=== PATIENT | male | born 1940 | race African-American/Black ===

== ENCOUNTER 2020-02-28 06:15 | Day surgery (SDC) | payer OTHER ==
[~2020-02-28] VITALS: Ht 170.2 cm; Wt 98.9 kg
[~2020-02-28 06:15] MED LIST: ACTOS 30 MG TAB30 MG PO; BENAZEPRIL HCL20 MG PO; CHILDREN'S ASPI81 M1 PO; GLIMEPIRIDE4 MG PO; NEURONTIN100 MG PO; NORVASC10 MG PO; OXYBUTYNIN CHLO15 MG PO; PROAIR HFA8.5 GM INH; SIMVASTATIN40 MG PO; XYZAL5 MG PO
[2020-02-28 07:19] VITALS: BP 145/63
--- NOTE | 2020-03-03 06:14 | O ---
[address] [place] [address] OPERATIVE REPORT Name: TERESA CASAS Room #: DEP [facility]#: [id number] Admission: 02/28/20 Attend Phys: Froilan Chinchilla MD Discharge: 02/28/20 Date of : 44 Report #: [id number] THIS REPORT FOR: cc: Danielle Santiago MD,Danielle Chinchilla,Froilan Nation MD ~ CC: Naga Chinchilla DATE OF SERVICE: 02/28/2020 PREOPERATIVE DIAGNOSIS: Left orbital mass. POSTOPERATIVE DIAGNOSIS: Left orbital mass. PROCEDURE: Left transconjunctival orbitotomy. SURGEON: Froilan Chinchilla MD. BARREL BRANDER: None. ANESTHESIA: General. COMPLICATIONS: None. INDICATIONS FOR SURGERY: This pleasant 79-year-old gentleman has a mass in his left superotemporal orbit inducing mechanical ectropion with chronic irritation and discharge from that eye. 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 He presents today for a right transconjunctival orbitotomy. Informed consent was obtained to include but not limited to the potential risk for loss of vision, bleeding, infection, failure to improve the problem, and the potential need for further surgery or treatment. DESCRIPTION OF PROCEDURE: The patient was taken to the operating room where general anesthesia was administered. The left orbit was then anesthetized transconjunctivally with Xylocaine with epinephrine mixed with Marcaine and Wydase. An additional aliquot of anesthetic was then administered over the left lateral canthus to achieve a 7th nerve block. The patient was subsequently prepped and draped in the usual sterile fashion. The left upper lid was then distracted superiorly allowing access to the superior temporal conjunctivae. A radial incision was then made through conjunctiva allowing Tenon to be grasped. Tenon's capsule was then elevated and an incision made through the capsule. The mass could be grasped through that buttonhole incision. The dissection was then [address] [address] OPERATIVE REPORT Name: CASASTERESA Room #: DEP [facility]..#: [id number] Admission: 02/28/20 Attend Phys: Froilan Chinchilla MD Discharge: 02/28/20 Date of : 44 Report #: [id number] carried down on to the episclera the lesion from the underlying globe, the inferiorly based lateral rectus muscle, the superiorly based superior rectus muscle, and the overlying lacrimal gland. The dissection was carried down past the equator. The lesion was then grasped at its base and clamped with a hemostat. A high-temp cautery was then used to amputate the lesion anterior to the equator. The stump was grabbed as the hemostat was released to ensure that good hemostasis was obtained. Minimal bleeding ensued, which was controlled with monopolar cautery. The wound was then closed with 6-0 plain gut sutures with buried knots. The wound was then cleaned and dressed with erythromycin ophthalmic ointment and the patient subsequently transported to the recovery area having tolerated the procedure well with no anesthetic or operative complications being noted. <ELECTRONICALLY SIGNED> By: Froilan Chinchilla MD 03/03/20 0614 Froilan Chinchilla MD /nt
--- NOTE | 2020-03-04 17:06 | PATH ---
[facility] [address] [place] [address] PATHOLOGY RPT PROCEDURE Name: TERESA CASAS Sara Room #: DEP [facility] M.R.#: [id number] Admission: 02/28/20 Date of : 42 Discharge: 02/28/20 Report #: [id number] Path Case #: [id number] [facility] Accession Number: [id number] . 01 Material submitted: . eye - LEFT EYE DERMAL LIPOMA. Modifiers: left . 01 Clinical history: . Benign neoplasm of orbit . 02 Diagnosis: Mature adipose tissue, left eye dermal lipoma, excision: - Compatible with a lipoma showing reactive changes. . (IUV:mml; 03/04/2020) [facility] 03/04/2020 1635 Local . 02 Comment: Examination shows a few reactive nuclei and mild hyperchromasia. Therefore a properly-controlled *MDM2 immunohistochemical stain is performed on block A1 and is shows no nuclear reactivity present supporting the diagnosis rendered. . (IUV:mml; 03/04/2020) . . Professional services performed by [facility] at [facility], [address] [place] [address] , [place] [address]. *Technical services performed by [facility], [address] [place] [address], [address], [place] [address]. . 02 Electronically signed: . Callie Hill MD, Pathologist NPI- [id number] . 01 Gross description: . The specimen is received in formalin, labeled "Teresa Casas, left eye dermal lipoma" and consists of a segment of yellow orange lobulated tissue measuring 1.4 x 1.0 x 0.5 cm. Sectioning reveals homogeneous yellow cut surfaces and the specimen is entirely submitted in A1. (SDY; 02/28/2020) SYU/SYU 03/04/2020 1351 Local . 02 Pathologist provided ICD-10: D17.79 . 02 CPT . 795241, [id number] [facility] [address] [place] [address] PATHOLOGY RPT PROCEDURE Name: TERESA CASAS Sara Room #: [facility] M.R.#: [id number] Admission: 02/28/20 Date of : 44 Discharge: 02/28/20 Report #: [id number] Path Case #: [id number] Specimen Comment: A courtesy copy of this report has been sent to [phone] Specimen Comment: [phone], Specimen Comment: Report sent to ,DR SINGH / DR LIVE Performed at: [address], [place], [place] [id number] MD William Williamson MD Phone: [phone] Performed at: [address] [id number] MD Callie Hill MD Phone: [phone]
== END 2020-02-28 08:55 | disposition home or self-care (01) ==
LOC: TBA 06:15 → OR 06:15 → TBA 06:25 → OR 08:55
PROVIDERS: ATTEND Ophthalmology
DX: D17.0 Benign lipomatous neoplasm of skin and subcutaneous tissue of head, face and neck (principal); H05.89 Other disorders of orbit; E11.9 Type 2 diabetes mellitus without complications; G47.30 Sleep apnea, unspecified; Z11.59 Encounter for screening for other viral diseases; Z98.890 Other specified postprocedural states; Z79.899 Other long term (current) drug therapy; Z87.891 Personal history of nicotine dependence
CPT/HCPCS: 50010; 50101; 50386; 50398; 51636; 62110; 62900; 70005

== ENCOUNTER 2021-08-15 20:22 | Inpatient (IN) | payer OTHER ==
[~2021-08-15 20:22] MED LIST changes: -COZAAR 50 MG TA50 M1 PO; -LEXAPRO 10 MG T10 M1 PO; -PEPCID20 MG PO; -TRAZODONE HCL50 MG PO
[2021-08-16 05:25] VITALS: BP 145/81
--- NOTE | 2021-08-16 06:57 | NUR ---
08-16-21 RECEIVED REPORT FROM ED RN NA. PT ARRIVED 0525 AAOX4, VS B/P 145/81, P 80, R 18, T 96.6, 02 SAT 100% RA RR EVEN AND NONLABORED, LUNGS CLEAR, HT RR, ABD SOFT/ACTIVE/NONETENDER. PT DENIES SI/HI AND PAIN. PT CALM AND COOPERATIVE. PT HX HTN, DMII. PT REPORTS THAT HE HAS ALSO HAD THE BOOSTER FOR COVID. HCP Anthony MCDANIEL NP CONTACTED. HCP Kerri BURNS MD CONTACTED AND ORDERS RECEIVED. PT REQUESTED WE CONTACT HIS , MESSAGE LEFT FOR WEI THIS AM.
[2021-08-16 08:24] VITALS: BP 130/64
[2021-08-16 09:36] VITALS: BP 130/64
--- NOTE | 2021-08-16 10:15 | NUR ---
RESUMMED CARE FROM OVERNIGHT SHIFT THIS AM, PATIENT ALERT ORIENTED TIMES 4. PATIENT DENIES SI/HI/AH/VH AT PRESENT; PATIENT STATES HE WOULD NEVER KILL HIMSELF AND LEAVE HUS FAMILY. PATIENT STATES THE STRESS FROM COVID HAD HIM THINKING CRAZY. PATIENT DENIES DEPRESS OR ANXIETY AT PRESENT; PATIENTS ABDOMEN SOFT BOWEL SOUNDS PRESENT. PATIENTS LUNGS CLEAR PATIENT CALM COOPERATIVE PARTICIPATED IN GROUPS. WILL CONTINUE TO MONITOR PATIENT FOR SAFETY AND BEHAVIORS.
--- NOTE | 2021-08-16 12:23 | NUR ---
Phone call to patient's daughter, Mk ([phone]). Mk is interested in becoming DPOA for her father. She stated the patient was diagnosed with having early signs of dementia while at [facility]. They are currently waiting lab results to determine if the patient has a UTI and prostate cancer. Mk states the patient is . The 's phone number is [phone]. Mk expressed that her mother would like for Mk to be the DPOA as with everything going on, it is too overwhelming for her mother. The provided Mk with her email address. Mk states she will email the DPOA paperwork to the .
[2021-08-16 14:14] LABS: CHOLESTEROL 143 mg/dL (<200); HDL CHOLESTEROL 44 mg/dL (>40); LDL CHOLESTEROL 69 mg/dL (<100); TC:HDL 3.3 Ratio (Not establshd); TRIGLYCERIDE 154 mg/dL (<150); VLDL 31 mg/dL (<40)
[2021-08-16 19:08] VITALS: BP 138/76
[2021-08-16 23:06] LABS: GLYCOHEMOGLOBIN (HGB A1C) 8.1 % (4.8-5.6)
--- NOTE | 2021-08-17 02:59 | NUR ---
08-16-21 CARE TRANSFERRED 1899. LATER PT AAOX4, VSS, RR EVEN AND NONLABORED ON RA, LUNGS CLEAR, HT RR, ABD SOFT/ACTIVE. PT DENIES SI/HI AND PAIN. PT CALM AND COOPERATIVE THROUGHOUT NURSING ASSESSMENT. DURING MEDICATION ADMIN PT REPORTED FEELING DEPRESSED THROUGH THE LAST YEAR DEALING WITH COVID19. PT WILLING TO TRY THE MEDICATION AND HOPE IT WORKS. PT DENIES NEEDING ANY FURTHER ASSISTANCE. PT WILL CONTINUE TO BE MONITOR PER [facility].
[2021-08-17 09:00] VITALS: BP 155/69
[2021-08-17 09:05] VITALS: BP 155/69
[2021-08-17 09:09] VITALS: BP 130/83
[2021-08-17 09:12] VITALS: BP 155/69
--- NOTE | 2021-08-17 11:00 | NUR ---
Nutrition: pt admitted with [facility] unit with SI, depression. Hx NIDDM. On oral med. A1C 8.5, BG 140. Pt voices UBW of 215#. Has had 10# weight loss from usual, intentionally. Tries to walk after meals and watches what he eats at home. On 1 oral med for DM. Continue regular diet as long as accuchecks are controlled. Consider low nutrition risk.
--- NOTE | 2021-08-17 14:11 | NUR ---
Phone call to patient's daughter, Adriana. Adriana provided the correct phone number for her mother, Glendy ([phone]). Adriana continues to be interested in being the DPOA for the patient. The has discussed this with the patient and the patient is in support of this occurring. Phone call to the patient's , Glendy - Voice message
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
--- NOTE | 2021-08-17 16:27 | NUR ---
Assumed pt care this am from overnight shift. Client presented pleasant and calm during assessment and was oriented 4x. Client denied depression and anxiety at this time. Client also denied any hallucinations. Client denied any suicidal and homicidal thoughts as well. Client lung sounds clear. Bowel sounds present. Last reported bm 08/15/21. During assessment, client presented concerns about his medication and medication regime. Concerns passed along to hospitalist, and discussed with MELINDA Adhikari during this shift. Medication changes made by hospitalist to align with client's current home regime and hospitalist request. Client has been informed. No further concerns at this time.
[2021-08-17 19:38] VITALS: BP 134/66
[2021-08-17 20:30] VITALS: BP 134/66
--- NOTE | 2021-08-18 01:01 | NUR ---
PATIENT WAS IN BED IN HIS ROOM THIS EVENING WHEN I ASSUMED CARE OF PATIENT AT 1900. ENCOURAGED PATIENT TO COME OUT AND WATCH WiTricity BASKETBALL WITH ANOTHER PATIENT THAT HE LIKES TO SPEND TIME WITH. HE WAS ANXIOUS AND DID NOT WANT TO COME OUT IF ALOT OF PEOPLE WERE OUT THERE. HE DID WANT A SNACK, HOWEVER, AND I EXPLAINED THAT HE HAS TO EAT HIS SNACKS IN THE DINING ROOM. HE CAME OUT AND WATCHED THE GAME FOR AWHILE BEFORE GOING TO HIS ROOM TO SLEEP. HE DID REQUEST HIS TRAZADONE PRN AT BEDTIME. HE HAS BEEN PLEASANT AND COOPERATIVE. HE DENIES SI/HI/AVH. HE DENIES PAIN. BED IN LOW POSITION. PATIENT A/0X4. ROUTINE ROUNDS TO ASSESS SAFETY AND STATUS OF PATIENT.
[2021-08-18 04:10] LABS: BASOPHILS 0.5 % (0.0-2.0); EOSINOPHILS 3.4 % (0.0-3.0); HEMATOCRIT 40.7 % (42.0-52.0); HEMOGLOBIN 13.3 gm/dL (14.0-18.0); LYMPHOCYTES 47.8 % (24.0-44.0); MCH 28.3 pg (26.0-34.0); MCHC 32.7 g/dL (28.0-37.0); MCV 86.6 fL (80.0-100.0); MONOCYTES 11.9 % (1.0-8.0); PLATELET COUNT 225 thou/uL (150-400); POLYS 36.4 % (36.0-66.0); RDW 14.5 % (10.5-14.5); WBC 5.6 thou/uL (4.0-11.0)
[2021-08-18 05:47] LABS: CALCIUM 8.8 mg/dL (8.5-10.1); CREATININE 1.3 mg/dL (0.7-1.3); MAGNESIUM 1.9 mg/dL (1.8-2.4); POTASSIUM 4.3 mmol/L (3.5-5.1)
[2021-08-18 09:32] VITALS: BP 137/62
[2021-08-18 10:11] VITALS: BP 137/62
--- NOTE | 2021-08-18 10:59 | NUR ---
Meeting with patient, Dr. Gonzalez and SW prior to Family meeting. Doctor and SW expressed the importance of the patient following the guidelines for being on the sexual offender registry. Family meeting via phone - Present for meeting were SW, Dr. Gonzalez, patient and patient's (Glendy - [phone]). Glendy expressed wanting patient to return home. Glendy does work and will need to return to work. Dr. Gonzalez encouraged family to have activities to fill the patient's day. The patient reports he does facilitate senior activities. In addition to this, the patient's daughter has a dog that he would be able to watch. Glendy reports all guns have been removed from the home. The patient will be discharged today. Glendy reports her daughter will have to pick the patient up as Glendy has pink eye and does not want to risk anyone catching it at the hospital. Phone call to patient's PCP, Dr. Santiago ([phone]). Discussed treatment and plan. Attempted to schedule appointment but the doctor reported the SW would need to call back to do so. Phone call to patient's therapist, Nik Payne ([phone]). Voice message regarding making an appointment for the patient. Phone call to Dr. Santiago to schedule an appointment for the patient. First appointment opening is 10/09/21 at 3:30pm. The SW was transferred to the nurse to determine if an earlier appointment could be scheduled. Voice message. Completed DPOA paperwork with patient.
--- NOTE | 2021-08-18 11:17 | NUR ---
PATIENT CARE ASSUMED AT 0700 - PLEASANT AND COOPERATIVE. ALERT AND ORIENTED X 4. ADMITTED HAS BEEN SUFFERING FROM DEPRESSION BUT HOPING MEDICATION WILL HELP. DENIES S/I OR H/I - RATED DEPRESSION/ANXIETY 12/15 - AMBULATORY - COMPLIANT WITH MEDICATIONS. BLOOD SUGAR 148 AT BREAKFAST AND ATE 100 PERCENT OF HIS MEAL. ISOLATES TO ROOM BUT RESPONSIVE WITH ENCOURAGEMENT. TALKED ABOUT DR. BURNS AND HOW PLEASED HE WAS WITH HER CARE AND DR. COOL. WILL CONTINUE TO MONITOR FOR SAFETY AND ADDRESS ANY CONCERNS ACCORDINGLY DURING THE DAY.
[2021-08-18] MEDS ORDERED: LEXAPRO 10 MG T10 M1 PO (11:35)
[2021-08-18] MEDS ORDERED: COZAAR 50 MG TA50 M1 PO (11:35)
[2021-08-18] MEDS ORDERED: PEPCID20 MG PO (11:37)
[2021-08-18] MEDS ORDERED: TRAZODONE HCL50 MG PO (11:37)
--- NOTE | 2021-08-18 15:23 | NUR ---
PATIENT DEPARTED AT 1500 - DISCHARGED HOME. TRANSPORTED PRIVATE VEHICLE. ALL BELONGINGS REVIEWED WITH PATIENT AND TAKEN WITH HIM. STOPPED AT SECURITY AND CELL PHONE, INSURANCE CARD AND DRIVERS LICENSE SIGNED OUT TO PATIENT. 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 ALL DOCUMENTATION PATIENT WAS WILLING TO SIGN IN CHART. COPIES SUPPLIED TO PATIENT.
--- NOTE | 2021-08-19 12:16 | NUR ---
08/18/2021 and 08/19/2021 - Faxed discharge paperwork to on-going therapist, Nik Payne ([phone]).
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
== END 2021-08-18 15:26 | disposition home or self-care (01) | DRG 885 ==
LOC: SBH
PROVIDERS: Nurse Practitioner; ADMIT Psychiatry & Neurology Psychiatry; ATTEND Psychiatry & Neurology Psychiatry
DX: F32.2 Major depressive disorder, single episode, severe without psychotic features (principal); N17.9 Acute kidney failure, unspecified; N18.9 Chronic kidney disease, unspecified; R45.851 Suicidal ideations; K21.9 Gastro-esophageal reflux disease without esophagitis; Z20.822 Contact with and (suspected) exposure to COVID-19; N40.0 Benign prostatic hyperplasia without lower urinary tract symptoms; I12.9 Hypertensive chronic kidney disease with stage 1 through stage 4 chronic kidney disease, or unspecified chronic kidney disease; E11.22 Type 2 diabetes mellitus with diabetic chronic kidney disease; G89.29 Other chronic pain; M54.2 Cervicalgia; Z90.49 Acquired absence of other specified parts of digestive tract; Z87.891 Personal history of nicotine dependence; Z79.82 Long term (current) use of aspirin; Z79.899 Other long term (current) drug therapy; Z98.49 Cataract extraction status, unspecified eye
CPT/HCPCS: 10880

== ENCOUNTER → 2021-08-15 | Emergency (ER) | payer OTHER ==
[~2021-08-15] VITALS: Ht 170.2 cm; Wt 97.5 kg
[~2021-08-15] MED LIST changes: +COZAAR 50 MG TA50 M1 PO; +LEXAPRO 10 MG T10 M1 PO; +PEPCID20 MG PO; +TRAZODONE HCL50 MG PO
--- NOTE | ~2021-08-15 | EMS ---
[address] [address] EMS Patient Care Report Name: TERESA CASAS Room #: REG JEREMIAS Rosa#: [id number] Admission: 08/15/21 Attend Phys: Discharge: Date of : 44 Report #: [id number] THIS REPORT FOR: //name// Report Transmitted: 08/19/2021 09:45 EMS Care Summary [place], [place]/[facility] Incident [id number] @ 08/15/2021 22:16 Incident [address] [place] [address] 38 Patient TERESA CASAS Male, 81 Years 1940 Patient Address [address] [place] [address] Patient History Diabetes,Hypertension (HTN),Sleep Apnea, Patient Allergies Shellfish allergy, Patient Medications Glimepiride, Amlodipine, Oxybutynin, Chief Complaint depression Disposition Transported No Lights/[address] Dispatch Reason Transfer/Interfacility/Palliative Care Transported To [facility] Narrative 81 y/o male [facility]. pt came in on his own due to feeling depressed et having si. pt gets dressed in his clothes before leaving the er. pt is being transferred to [facility] et then to their geriatric psych unit for further evaluation et tx. pt is a&o x 3[place] [address] EMS Patient Care Report Name: TERESA CASAS Room #: [facility]#: [id number] Admission: 08/15/21 Attend Phys: Discharge: Date of : 42 Report #: [id number] cooperative. pt is ambulatory on scene c no difficulty. pt is assisted to the unit. pt remains stable enroot c no problems. pt care is transferred to [facility] nursing staff. Initial Vitals @22:55P: 82,R: 18,BP: 131/81,Pain: 0/10,GCS: 15,SpO2: 98,Revised Trauma: 12, @23:41P: 88,R: 18,BP: 130/88,Pain: 0/10,GCS: 15,SpO2: 98,Revised Trauma: 12, Assessments @22:55MENTAL:Time Oriented,Event Oriented,Person Oriented,Place Oriented,SKIN:HEENT:Eyes: Right Pupil: 4-mm,Eyes: Left Pupil: 4-mm,Head/Face: No Abnormalities,Neck/Airway: No Abnormalities,LUNG SOUNDS:General: No Abnormalities,ABDOMEN:General: No Abnormalities,PELVIS//GI:No Abnormalities,EXTREMITIES:Capillary Refill: Left Upper: < 2 Sec,Capillary Refill: Right Lower: < 2 Sec,Capillary Refill: Left Lower: 3 Sec,Capillary Refill: Right Upper: < 2 Sec,Left Arm: No Abnormalities,Right Arm: No Abnormalities,Left Leg: No Abnormalities,Right Leg: No Abnormalities,PULSE:Brachial: 2+ Normal,Carotid: 2+ Normal,Radial: 2+ Normal,NEURO:No Abnormalities, Impression Behavioral/psychiatric episode Procedures @22:55 ALS Assessment Response: UnchangedSucceeded Timeline 18:56,Call Received 18:56,Dispatch Notified 22:16,Dispatched 22:16,En Route 22:33,On Scene 22:55,At Patient 22:55,ALS Assessment,Response: UnchangedSucceeded, 22:55,BP: 131/81 M,PULSE: 82,RR: 18 R,SPO2: 98 Ox,ETCO2: ,BG: ,PAIN: 0,GCS: 15, 23:25,Depart Scene 23:41,BP: 130/88 M,PULSE: 88,RR: 18 R,SPO2: 98 Ox,ETCO2: ,BG: ,PAIN: 0,GCS: 15, 23:46,At Destination 00:19,Call Closed Disclaimer v1.1 Copyright 2021 [employer] This EMS Care Summary contains data elements from the applicable legal record (which may be displayed differently). It is designed to provide pertinent information for the following purposes: continuity of care, clinical quality, [address] [address] EMS Patient Care Report Name: TERESA CASAS Room #: REG [facility]#: [id number] Admission: 08/15/21 Attend Phys: Discharge: Date of : 42 Report #: [id number] and state data reporting. The complete legal record is available to ED staff and administrators of the receiving hospital in [employer]'s Patient Tracker. All data is provided "as is."
[2021-08-16 00:15] VITALS: BP 137/75
== END ==
LOC: ER 23:48
PROVIDERS: Emergency Medicine
DX: F32.9 Major depressive disorder, single episode, unspecified (principal); Z20.822 Contact with and (suspected) exposure to COVID-19; E11.9 Type 2 diabetes mellitus without complications; I10 Essential (primary) hypertension; E78.00 Pure hypercholesterolemia, unspecified; Z79.82 Long term (current) use of aspirin; Z79.51 Long term (current) use of inhaled steroids; Z79.899 Other long term (current) drug therapy